=== PATIENT | male | born 1980 | race Caucasian/White ===

== ENCOUNTER → 2017-03-18 | Outpatient (CLI) | payer MEDICARE, MEDICAID ==
[~2017-03-18] MED LIST: PROHANCE 279.3MG/ML 15ML VIAL (A9576) As Ordered ONE
--- NOTE | 2017-03-18 13:58 | REP ---
MRI BRAIN AND INTERNAL AUDITORY CANAL STUDY WITHOUT AND WITH INTRAVENOUS GADOLINIUM: HISTORY: Bilateral hearing loss. Remote prior history of traumatic brain injury. No comparison neural imaging. INTRAVENOUS CONTRAST DOSE: 14 mL of intravenous ProHance. MR TECHNIQUE: Axial and coronal imaging planes were utilized. T1 and T2-weighted sequences include spin echo, turbo spin echo, FLAIR, diffusion weighted scan images, a 3D thin-section T2-weighted images and post gadolinium enhanced images. MRI FINDINGS: No bony calvarial lesion is seen. There is no MR evidence of significant paranasal sinus disease. A small area of mucosal thickening is seen in the right anterior ethmoid sinus. No intraorbital abnormality is appreciated. There is an area of old encephalomalacia in the left basal ganglia in the sub insular distribution consistent with history of old traumatic brain injury. In addition, this area of encephalomalacia shows a peripheral pattern of low T1 low T2 signal intensity hemosiderin staining. Similar fairly dramatic hemosiderin staining is seen extensively in the leptomeningeal surfaces of the brain at the basilar cisterns in the posterior fossa along the Sylvian fissures bilaterally and in the anterior hemispheric fissure. 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 There is no evidence of jordan aneurysm or arteriovenous malformation on these images. No intracranial mass lesion is observed. No CP angle cistern mass is seen. The internal auditory canals are normal. There is no evidence of acoustic neuroma. There is minimal basilar cistern leptomeningeal enhancement postcontrast. No extra-axial fluid collection is seen. No other brain parenchymal abnormality is observed. 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 There is an old area of encephalomalacia in the left basal ganglia. No MR evidence of aneurysm or AVM on the acquired images. No CP angle cistern mass is seen. Signed by Norm Early MD 03/18/2017 03:57 P
== END ==
LOC: M RAD 09:06
PROVIDERS: ATTEND Otolaryngology
DX: H90.3 Sensorineural hearing loss, bilateral (principal); H83.09 Labyrinthitis, unspecified ear
CPT/HCPCS: 70553; A9576